=== PATIENT | female | born 1955 | race Caucasian/White ===

== ENCOUNTER 2025-01-12 14:48 | Outpatient (CLI) | payer MEDICARE, SELFPAY | END 2025-01-12 14:49 | disposition home or self-care (01) | PROVIDERS: PCP Family Medicine; Visit Provider Family Medicine | DX: I10 Essential (primary) hypertension (principal); E78.5 Hyperlipidemia, unspecified; R53.83 Other fatigue; F32.A Depression, unspecified; F41.9 Anxiety disorder, unspecified; Z11.59 Encounter for screening for other viral diseases | CPT/HCPCS: 80053; 80061; 82043; 82306; 82570; 84443; 86803 ==

== ENCOUNTER 2025-03-23 13:22 | Outpatient (CLI) | payer MEDICARE, SELFPAY ==
--- NOTE | 2025-03-23 13:30 | CRLHL7_ITS ---
For Patients: As a result of the Century Cures Act, medical imaging exams and procedure reports are released immediately into your electronic medical record. You may view this report before your referring provider. If you have questions, please contact your health care provider. DXA BONE MINERAL DENSITY STUDY Current height (in): 62.7. Weight (lb): 175. Menopause age: 52. Ethnicity: White. 1. Have you had a previous hip or vertebral fracture? No. 2. Have you had any fractures during your adult life which did not result from significant trauma (e.g., auto accident)? No. 3. Did either of your parents have a hip fracture? No. 4. Do you smoke? No. 5. Have you ever taken Glucocorticoids? Yes. 6. Do you have rheumatoid arthritis? No. 7. Do you have secondary osteoporosis? No. 8. Do you drink 3 or more alcoholic drinks per day? No. 9. Are you being treated for osteoporosis? No. 10. Have you ever taken any of the following medications: Actonel, Evista, Fosamax, Miacalcin, Reclast, Boniva, Forteo, HRT (i.e. estrogen/hormone therapy), Protelos, Prolia, Vitamin D, Calcium, other ??? please specify. ANSWER: Yes, Vitamin D and calcium. 11. Do you have any of the following medical conditions: Anorexia or bulimia, asthma or emphysema, end stage renal disease, hyperparathyroidism, any seizure disorders, cancer, inflammatory bowel diseases, hysterectomy, other ??? please specify. ANSWER: Yes, hysterectomy. 12. What was your maximum height (inches)? 63. 13. Do you perform weight bearing exercise regularly? Yes. 14. Do you regularly consume dairy products? Yes. 15. Do you drink caffeinated beverages? Yes. 16. At what age did your period start? 11. 17. Are you premenopausal? No. 18. How many full-term pregnancies have you had? 0. 19. Have you ever missed your period for more than 6 months in a row (not including or menopause)? No. TECHNIQUE: Bone mineral density study was performed using the [employer]. FINDINGS: The results of the study expressed as bone mineral density (BMD) are as follows: Lumbar spine L1 to L3: BMD: 1.262 g/cm2. T-score: 2.2. Z-score: 4.3 Neck Left: BMD: 0.947 g/cm2. T-score: 0.9. Z-score: 2.7 Right: BMD: 0.921 g/cm2. T-score: 0.6. Z-score: 2.5 Total Left: BMD: 1.151 g/cm2. T-score: 1.7. Z-score: 3.2 Right: BMD: 1.167 g/cm2. T-score: 1.8. Z-score: 3.4 IMPRESSION: Normal bone density. *Comparison exams done prior to 11/2019 were performed on different unit, [employer]. Quan Land M.D. Diagnostic Radiologist [email or web address] hall/Dictated by: Quan Land MD @ 03/24/2025 11:29:00 AM (Electronically Signed)
== END 2025-03-23 13:23 | disposition home or self-care (01) ==
LOC: RAD 13:24
PROVIDERS: PCP Family Medicine; Visit Provider Family Medicine
DX: M81.0 Age-related osteoporosis without current pathological fracture (principal); I09.9 Rheumatic heart disease, unspecified; I34.0 Nonrheumatic mitral (valve) insufficiency; I07.1 Rheumatic tricuspid insufficiency; I10 Essential (primary) hypertension; Z13.820 Encounter for screening for osteoporosis
CPT/HCPCS: 77080; 93306

== ENCOUNTER 2025-06-13 13:44 | Outpatient (CLI) | payer MEDICARE, SELFPAY ==
[2025-06-13 14:59] VITALS: BP 122/80; PULSE 82; RESP 20; O2SAT 98
--- NOTE | 2025-06-13 14:59 | W.PM.STED ---
Stress Test Note Date Date of test: 06/13/25 Providers Primary care provider: Adelina Ruano Stress test physician: Luis Guo Stress Test Note Stress test ordered: Stress Echo Indication for test: Chest pain Results discussion: This very nice patient presents for the above test, after discussion the risks benefits and side effects of the test, patient would like to continue. Cardiac stress test medical history form is reviewed entirely. Pretest EKG shows normal sinus rhythm with a ventricular rate of 70, blood pressure 128/[address] wave changes. Standard [facility] protocol is done over 6 minute 32nd period, she achieved a metabolic equivalent of 7.7 Mets with a maximum rate 156 which is 121% of the maximum, test is terminated because of fulfillment of protocol. Review of the tracing shows no acute ST wave changes, there is no dysrhythmias, she did not suffer any subjective symptoms. Impression: Negative electrographic tracing, negative subjective Follow up suggested: Await echo read by Cardiology, clinical correlation with this will be needed, patient recovered normally left this testing facility in good condition.
== END 2025-06-13 13:45 | disposition home or self-care (01) ==
PROVIDERS: PCP Family Medicine; Visit Provider Internal Medicine
DX: R07.9 Chest pain, unspecified (principal); I34.0 Nonrheumatic mitral (valve) insufficiency; E04.1 Nontoxic single thyroid nodule; Z09 Encounter for follow-up examination after completed treatment for conditions other than malignant neoplasm; Z86.39 Personal history of other endocrine, nutritional and metabolic disease
CPT/HCPCS: 93016; 93325; 93351

== ENCOUNTER 2025-06-13 13:46 | Outpatient (CLI) | payer MEDICARE, SELFPAY ==
--- NOTE | 2025-06-13 15:00 | CRLHL7_ITS ---
For Patients: As a result of the Century Cures Act, medical imaging exams and procedure reports are released immediately into your electronic medical record. You may view this report before your referring provider. If you have questions, please contact your health care provider. INDICATION: History of thyroid nodule COMPARISON: none TECHNIQUE: [place] scale and color Doppler images were acquired of the thyroid gland. FINDINGS: Isthmus measures 2.8 millimeters. Solid left thyroid lobe nodule measures 12 x 9 x 10 millimeters, TR 4. Cystic nodule at the left side of the isthmus measures 11 x 4 x 7 millimeters, TR 2. The right lobe measures 4.1 x 1.4 x 1.5 cm and the left lobe measures 4.1 x 1.5 x 1.5 cm in size. The color Doppler images demonstrate normal vascularity. There is no evidence of cervical lymphadenopathy or parathyroid mass. IMPRESSION: 1.2 cm TR 4 nodule left thyroid lobe. One year follow-up recommended. Dictated by Quan Land MD @ 06/13/2025 3:31:08 PM (Electronically Signed)
== END 2025-06-13 13:47 | disposition home or self-care (01) ==
LOC: US 13:47
PROVIDERS: PCP Family Medicine; Visit Provider Physician Assistant
DX: E04.1 Nontoxic single thyroid nodule (principal); Z09 Encounter for follow-up examination after completed treatment for conditions other than malignant neoplasm; Z86.39 Personal history of other endocrine, nutritional and metabolic disease
CPT/HCPCS: 76536